=== PATIENT | male | born 1995 | race Caucasian/White ===

== ENCOUNTER 2017-09-01 08:56 | Emergency (ER) | payer SELFPAY ==
[~2017-09-01] VITALS: Ht 175.3 cm; Wt 66.9 kg
--- NOTE | 2017-09-01 09:15 | NUR ---
Sameer london in [facility] - 09/01/17 at 0918 by [facility] Pt taken to bed 11.
[2017-09-01 09:18] VITALS: BP 115/62
--- NOTE | 2017-09-01 09:21 | NUR ---
Pt taken to bed 10.
--- NOTE | 2017-09-01 09:25 | NUR ---
patient was brought in by private vehicle for c/o abdominal pain x 1 week. patient appears to be comfortable at this time. patient currently denies any n,v,d, fever, or chills. last bm was two days ago. patient describes his abdominal pain as "burning" patient's skin w,d,i. bowel sounds present to all four quardrants. tender to mid abdominal area. family at bedside. awaiting md er evaluation.
--- NOTE | 2017-09-01 09:30 | NUR ---
Dr. Barrow at bedside examining patient.
--- NOTE | 2017-09-01 09:43 | NUR ---
Patient discharged with v/s stable. Written and verbal after care instructions given and explained. Patient alert, oriented and verbalized understanding of instructions. Ambulatory with steady gait. All questions addressed prior to discharge. ID band removed. Patient advised to follow up with PMD. Rx of Omeprazole given. Patient educated on indication of medication including possible reaction and side effects. Opportunity to ask questions provided and answered.
== END 2017-09-01 09:43 | disposition home or self-care (01) ==
LOC: MED 08:56
DX: K29.70 Gastritis, unspecified, without bleeding (principal); Z71.6 Tobacco abuse counseling
CPT/HCPCS: 99282